=== PATIENT | male | born 1960 | race Caucasian/White ===

== ENCOUNTER 2017-03-04 09:14 | Day surgery (SDC) | payer BC, OTHER ==
[~2017-03-04 09:14] MED LIST: LIDOCAINE HCL 1% MPF SOL ONE; PROPOFOL 500 MG/50 ML EMU IV ONE
[2017-03-04 11:17] VITALS: TEMP 97.1
[2017-03-04 11:42] VITALS: RESP 20
[2017-03-04 11:51] VITALS: BP 119/76; PULSE 76; O2SAT 96
== END 2017-03-04 11:56 | disposition home or self-care (01) | DRG 951 ==
LOC: SURG 09:14
PROVIDERS: ATTEND Internal Medicine Gastroenterology
DX: Z12.11 Encounter for screening for malignant neoplasm of colon (principal); K64.8 Other hemorrhoids; Z86.010 Personal history of colon polyps; Z80.0 Family history of malignant neoplasm of digestive organs
CPT/HCPCS: J2001; J2704